=== PATIENT | male | born 1995 | race Hispanic/Latino ===

== ENCOUNTER 2017-04-30 21:32 | Emergency (ER) | payer OTHER ==
[2017-04-30 21:45] VITALS: BMI 39.4
[2017-04-30 21:48] VITALS: BP 126/81; PULSE 73; RESP 16; TEMP 98.6; O2SAT 98
--- NOTE | 2017-04-30 22:11 | ED PDOC ---
Arrival/HPI - General Chief Complaint: Headache Time Seen by Provider: 04/30/17 21:53 Historian: Patient - History of Present Illness Narrative History of Present Illness (Text): 04/30/17 22:11 Ancelmo Knight is a 22 year old male, with no significant past medical history , who presents to the Emergency department complaining of frontal headache. Patient states while driving home today from work he began experiencing frontal headache for which he took Advil with relief. Patient also reports 1 episode of shortness of breath and left-sided rib pain, both which have resolved. Patient notes he has been over-worked and stress at his job. He has not been sleeping well. Patient denies any fever, chills, chest pain, nausea, vomiting, diarrhea, urinary symptoms, back pain, neck pain, dizziness, or any other complaints. Time/Duration: Other (tonight) Symptom Onset: Gradual Symptom Course: Resolved Activities at Onset: Light Context: Learning And Development Coordinator Past Medical History - Provider Review Nursing Documentation Reviewed: Yes - Infectious Disease Hx of Infectious Diseases: None - Psychiatric Hx Psychophysiologic Disorder: No Hx Anxiety: No Hx Bipolar Disorder: No Hx Depression: No Hx Emotional Abuse: No Hx Hallucinations: No Hx Panic Disorder: No Hx Post Traumatic Stress Disorder: No Hx Psychosis: No Hx Physical Abuse: No Hx Schizophrenia: No Hx Sexual Abuse: No Hx Substance Use: No - Anesthesia Hx Anesthesia: No Hx Anesthesia Reactions: No Hx Malignant Hyperthermia: No Family/Social History - Physician Review Nursing Documentation Reviewed: Yes Family/Social History: Unknown Family HX Smoking Status: Former Smoker Hx Alcohol Use: No Hx Substance Use: No Allergies/Home Meds Allergies/Adverse Reactions: Allergies No Known Allergies Allergy (Verified 11/19/14 15:44) Review of Systems - Physician Review All systems were reviewed & negative as marked: Yes - Review of Systems Constitutional: Normal. absent: Fevers Eyes: Normal ENT: Normal Respiratory: SOB. absent: Cough Cardiovascular: Normal. absent: Chest Pain Gastrointestinal: Normal. absent: Abdominal Pain, Diarrhea, Nausea Genitourinary Male: Normal. absent: Dysuria, Frequency, Hematuria, Urinary Output Changes Musculoskeletal: Other (+left rib pain). absent: Back Pain, Neck Pain Skin: Normal. absent: Rash Neurological: Headache. absent: Dizziness Endocrine: Normal Hemo/Lymphatic: Normal Psychiatric: Normal, Other (+stress) Physical Exam Vital Signs Reviewed: Yes Vital Signs Temp Pulse Resp BP Pulse Ox 04/30/17 21:32 98.6 F 73 16 126/81 98 Temperature: Afebrile Blood Pressure: Normal Pulse: Regular Respiratory Rate: Normal Appearance: Positive for: Well-Appearing, Non-Toxic, Comfortable Pain Distress: None Mental Status: Positive for: Alert and Oriented X 3 - Systems Exam Head: Present: Atraumatic, Normocephalic Pupils: Present: PERRL Extroacular Muscles: Present: EOMI Conjunctiva: Present: Normal Mouth: Present: Moist Mucous Membranes Neck: Present: Normal Range of Motion. No: Meningeal Signs, MIDLINE TENDERNESS , Paraspinal Tenderness Respiratory/Chest: Present: Clear to Auscultation, Good Air Exchange. No: Respiratory Distress, Accessory Muscle Use Cardiovascular: Present: Regular Rate and Rhythm, Normal S1, S2. No: Murmurs Abdomen: Present: Normal Bowel Sounds. No: Tenderness, Distention, Peritoneal Signs Back: Present: Normal Inspection. No: CVA Tenderness, Midline Tenderness, Paraspinal Tenderness Upper Extremity: Present: Normal Inspection. No: Cyanosis, Edema Lower Extremity: Present: Normal Inspection. No: Edema Neurological: Present: GCS=15, CN II-XII Intact, Speech Normal Skin: Present: Warm, Dry, Normal Color. No: Rashes Psychiatric: Present: Alert, Oriented x 3, Normal Insight, Normal Concentration Medical Decision Making ED Course and Treatment: 04/30/17 22:11 Impression: 22 year old male presents for frontal headache, 1 episode of shortness of breath , and left-sided rib pain tonight after work, which has since resolved. PERC rule negative. Differential Diagnosis included but are not limited to: anxiety/stress vs. musculoskeletal pain Plan: -- EKG -- Chest X-ray -- Tylenol -- Reassess and disposition Progress Notes: 04/30/17 22:52 EKG reviewed, NSR at [address]-segment elevations or depressions, no T-wave inversions, normal intervals. Chest X-ray reviewed, no acute processes. PERC rule negative. CXR and EKG noted and normal. Patient is a very low risk for PE or cardiac chest pain/sob. 04/30/17 22:55 On re-evaluation, patient feels better and is in no acute distress. I have discussed the results and plan with the patient, who expresses understanding. Patient in agreement with plan to be discharged home. Patient is stable for discharge. Patient was instructed to follow up with physician or return if symptoms worsen or new concerning symptoms arise. - RAD Interpretation Radiology Orders: 04/30/17 22:10 CXR [CHEST TWO VIEWS (PA/LAT)] [RAD] Stat Database Development Project Manager: ED Physician - EKG Interpretation Interpreted by ED Physician: Yes Type: 12 lead EKG - Medication Orders Current Medication Orders: Discontinued Medications Acetaminophen (Tylenol 325mg Tab) 975 mg PO STAT STA Stop: 04/30/17 22:11 Last Admin: 04/30/17 22:14 Dose: 975 mg - Scribe Statement The provider has reviewed the documentation as recorded by the Pete Salazar Provider Scribe Attestation: All medical record entries made by the Scribe were at my direction and personally dictated by me. I have reviewed the chart and agree that the record accurately reflects my personal performance of the history, physical exam, medical decision making, and the department course for this patient. I have also personally directed, reviewed, and agree with the discharge instructions and disposition. Disposition/Present on Arrival - Present on Arrival Any Indicators Present on Arrival: No History of DVT/PE: No History of Uncontrolled Diabetes: No Urinary Catheter: No History of Decub. Ulcer: No History Surgical Site Infection Following: None - Disposition Have Diagnosis and Disposition been Completed?: Yes Diagnosis: Headache, Shortness of breath Disposition: HOME/ ROUTINE Disposition Time: 22:30 Patient Plan: Discharge Condition: IMPROVED Discharge Instructions (ExitCare): Acute Headache (ED), Fatigue (ED) Additional Instructions: Ms Knight, thank you for letting us take care of you today. Your provider was Dr. Reed. You were treated for Headache, Shortness of breathe, Left sided rip pain. The emergency medical care you received today was directed at your acute symptoms. If you were prescribed any medication, please fill it and take as directed. It may take several days for your symptoms to resolve. Return to the Emergency Department if your symptoms worsen, do not improve, or if you have any other problems. Please contact your doctor or call one of the physicians/clinics you have been referred to that are listed on the Patient Visit Information form that is included in your discharge packet. Bring any paperwork you were given at discharge with you along with any medications you are taking to your follow up visit. Our treatment cannot replace ongoing medical care by a primary care provider (PCP) outside of the emergency department. Thank you for allowing the [facility] team to be part of your care today. If you had an X-Ray or CT scan: A Radiologist will review the ED reading if any change in treatment is needed we will contact you. If you had a blood, urine, or wound culture: It will take several days for the results, if any change in treatment is needed we will contact you. If you had an STI test: It will take 48 hours for the results. Please call after 1 week if you have not heard back. Prescriptions: Ibuprofen [Motrin] 600 mg PO Q6 PRN #30 tab PRN Reason: Pain, Moderate (4-7) Referrals: Krissy Wilson MD [Primary Care Provider] - Follow up with primary Forms: [employer] (Pashto)
--- NOTE | 2017-05-01 10:31 | CARD ---
APPROVED REPORT EKG Measurement Heart [id number] <Conclusion> Normal sinus rhythm with sinus arrhythmia Normal ECG
== END 2017-04-30 23:00 | disposition home or self-care (01) ==
LOC: ED 21:32
DX: R51 Headache (principal); R06.02 Shortness of breath

== ENCOUNTER 2017-12-26 12:57 | Emergency (ER) | payer OTHER ==
[2017-12-26 13:18] VITALS: BMI 38.6
[2017-12-26 13:26] VITALS: RESP 18; TEMP 98.5
--- NOTE | 2017-12-26 13:45 | ED PDOC ---
Arrival/HPI - General Chief Complaint: Weakness/Neurological Deficit Time Seen by Provider: 12/26/17 13:06 Historian: Patient, Family (Brother) - History of Present Illness Narrative History of Present Illness (Text): 12/26/17 13:35 A 22 year old male, with no significant past medical history, presents to the emergency department with a complaint of right sided facial weakness. The patient notes that he has been experiencing a metal taste in his mouth for the last week. He states that last night he lost sensation to the right side of his face. The patient also notes that he has been experiencing intermittent headaches in the evenings fro the last 6 months. 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 The patient denies fevers, chills, dizziness, sore throat, cough, chest pain, shortness of breath, dyspnea on exertion, abdominal pain, nausea, vomiting, diarrhea, neck/back pain, urinary/bowel changes or any other complaint. PMD: Dr. Wilson Time/Duration: Other (Last Night) Symptom Onset: Sudden Symptom Course: Unchanged Activities at Onset: Rest, Light Context: Home Past Medical History - Provider Review Nursing Documentation Reviewed: Yes - Infectious Disease Hx of Infectious Diseases: None - Psychiatric Hx Psychophysiologic Disorder: No Hx Anxiety: No Hx Bipolar Disorder: No Hx Depression: No Hx Emotional Abuse: No Hx Hallucinations: No Hx Panic Disorder: No Hx Post Traumatic Stress Disorder: No Hx Psychosis: No Hx Physical Abuse: No Hx Schizophrenia: No Hx Sexual Abuse: No Hx Substance Use: No - Anesthesia Hx Anesthesia: No Hx Anesthesia Reactions: No Hx Malignant Hyperthermia: No Family/Social History - Physician Review Nursing Documentation Reviewed: Yes Family/Social History: No Known Family HX Smoking Status: Former Smoker Hx Alcohol Use: No Hx Substance Use: No Allergies/Home Meds Allergies/Adverse Reactions: Allergies No Known Allergies Allergy (Verified 12/26/17 13:14) Review of Systems - Physician Review All systems were reviewed & negative as marked: Yes - Review of Systems Constitutional: absent: Fevers ENT: absent: Sore Throat Respiratory: absent: SOB, Cough Cardiovascular: absent: Chest Pain, [place] Gastrointestinal: absent: Abdominal Pain, Stool Changes, Diarrhea, Nausea, Vomiting Genitourinary Male: absent: Urinary Output Changes Musculoskeletal: absent: Back Pain, Neck Pain Neurological: Headache, Other (Right sided facial weakness). absent: Dizziness Physical Exam Vital Signs Reviewed: Yes Vital Signs Temp Pulse Resp BP Pulse Ox 12/26/17 13:25 98.5 F 77 18 143/79 100 Temperature: Afebrile Blood Pressure: Normal Pulse: Regular Respiratory Rate: Normal Appearance: Positive for: Well-Appearing, Non-Toxic, Comfortable Pain Distress: None Mental Status: Positive for: Alert and Oriented X 3 Finger Stick Blood Glucose: 94 - Systems Exam Head: Present: Atraumatic, Normocephalic Pupils: Present: PERRL Extroacular Muscles: Present: EOMI Conjunctiva: Present: Normal Mouth: Present: Moist Mucous Membranes Neck: Present: Normal Range of Motion. No: Meningeal Signs, MIDLINE TENDERNESS Respiratory/Chest: Present: Clear to Auscultation, Good Air Exchange. No: Respiratory Distress, Accessory Muscle Use Cardiovascular: Present: Regular Rate and Rhythm, Normal S1, S2. No: Murmurs Abdomen: No: Tenderness, Distention, Peritoneal Signs Back: Present: Normal Inspection Upper Extremity: Present: Normal Inspection. No: Cyanosis, Edema Lower Extremity: Present: Normal Inspection. No: Edema Neurological: Present: GCS=15, CN II-XII Intact (Except CN 7), Speech Normal, Other (Paralysis of the entire right face, able to close R eye without issue however. Paralysis includes R forehead) Skin: Present: Warm, Dry, Normal Color. No: Rashes Psychiatric: Present: Alert, Oriented x 3, Normal Insight, Normal Concentration Medical Decision Making ED Course and Treatment: 12/26/17 13:47 Impression: A 22 year old male presents to the emergency department with a complaint of right sided facial weakness. 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 Will CT head to r/ out tumor given hx of GIBSON and has not visited neurology. no hx of tick bites or abnormal ra sh. Plan: -- Head CT -- Reassess and disposition Prior Visits: Notes and results from previous visits were reviewed. Progress Notes: PROCEDURE: CT HEAD WITHOUT CONTRAST. Dictator : Ashley Morales MD Report Date : 12/26/2017 14:38:34 IMPRESSION: No acute intracranial pathology identified. 12/26/17 14:48 Ct head unremarkable bells palsy neuro exam repeat w/ bells palsy. No other changes. clear for d/c home. - Lab Interpretations Lab Results: Lab Results 12/26/17 13:11: POC Glucose (mg/dL) 94 - RAD Interpretation Radiology Orders: 12/26/17 13:34 HEAD W/O CONTRAST [CT] Stat - Scribe Statement The provider has reviewed the documentation as recorded by the Scribe Awa Alvarez Provider Scribe Attestation: All medical record entries made by the Scribe were at my direction and personally dictated by me. I have reviewed the chart and agree that the record accurately reflects my personal performance of the history, physical exam, medical decision making, and the department course for this patient. I have also personally directed, reviewed, and agree with the discharge instructions and disposition. Disposition/Present on Arrival - Present on Arrival Any Indicators Present on Arrival: No History of DVT/PE: No History of Uncontrolled Diabetes: No Urinary Catheter: No History of Decub. Ulcer: No History Surgical Site Infection Following: None - Disposition Have Diagnosis and Disposition been Completed?: Yes Diagnosis: Mcnamara's palsy Disposition: HOME/ ROUTINE Disposition Time: 14:49 Condition: GOOD Discharge Instructions (ExitCare): Mcnamara's Palsy Additional Instructions: TAKE OVER THE COUNTER EYEDROPS FOR HYDRATION OVERNIGHT FOR YOUR EYE. TAPE YOUR EYE SHUT GENTLY WITH A GENTLE TAPE IF YOU WAKE UP WITH DRY EYES. TACOS KHALIL, thank you for letting us take care of you today. Your provider was Suresh Gamez and you were treated for MUSCLE WEEKNESS ON FACE. The emergency medical care you received today was directed at your acute symptoms. If you were prescribed any medication, please fill it and take as directed. It may take several days for your symptoms to resolve. Return to the Emergency Department if your symptoms worsen, do not improve, or if you have any other problems. Please contact your doctor or call one of the physicians/clinics you have been referred to that are listed on the Patient Visit Information form that is included in your discharge packet. Bring any paperwork you were given at discharge with you along with any medications you are taking to your follow up visit. Our treatment cannot replace ongoing medical care by a primary care provider outside of the emergency department. Thank you for allowing the [facility] team to be part of your care today. If you had an X-Ray or CT scan: A Radiologist will review the ED reading if any change in treatment is needed we will contact you. If you had a blood, urine, or wound culture: It will take several days for the results, if any change in treatment is needed we will contact you. If you had an STI test: It will take 48 hours for the results. Please call after 1 week if you have not heard back. Prescriptions: predniSONE [predniSONE Tab] 60 mg PO QAM 7 Days #21 tab Valacyclovir HCl [Valtrex] 1 gm PO TID 7 Days #21 tablet Referrals: Krissy Wilson MD [Primary Care Provider] - Follow up with primary Darrell Sherwood MD [Staff Provider] - Follow up with primary Forms: [employer] (Armenian), WORK NOTE
--- NOTE | 2017-12-26 14:43 | CT ---
Date of service: 12/26/2017 PROCEDURE: CT HEAD WITHOUT CONTRAST. HISTORY: hx of GIBSON COMPARISON: None available. TECHNIQUE: Axial computed tomography images were obtained through the head/brain without intravenous contrast. Radiation dose: Total exam DLP = 1025.19 mGy-cm. This CT exam was performed using one or more of the following dose reduction techniques: Automated exposure control, adjustment of the mA and/or kV according to patient size, and/or use of iterative reconstruction technique. FINDINGS: HEMORRHAGE: No intracranial hemorrhage. BRAIN: No mass effect or edema. No atrophy or chronic microvascular ischemic changes. VENTRICLES: No hydrocephalus. CALVARIUM: Unremarkable. PARANASAL SINUSES: Unremarkable as visualized. No significant inflammatory changes. MASTOID AIR CELLS: Unremarkable as visualized. No inflammatory changes. OTHER FINDINGS: None. IMPRESSION: No acute intracranial pathology identified.
[2017-12-26 15:34] VITALS: BP 106/61; PULSE 65; O2SAT 99
== END 2017-12-26 15:49 | disposition home or self-care (01) ==
LOC: ED 12:57
DX: G51.0 Bell's palsy (principal)

== ENCOUNTER 2018-03-22 16:18 | Emergency (ER) | payer MEDICAID, OTHER ==
[2018-03-22 16:18] VITALS: BMI 38.6
[2018-03-22] MEDS ORDERED: Sodium Chloride 0.9% 1,000 ML IV STA (16:48)
[2018-03-22 17:15] LABS: URINE APPEARANCE SLIGHT-CLOUDY (CLEAR); URINE BILIRUBIN SMALL (NEGATIVE); URINE BLOOD LARGE (NEGATIVE); URINE COLOR DARK YELLOW (YELLOW); URINE GLUCOSE (UA) NEGATIVE (NEGATIVE); URINE LEUKOCYTE ESTERASE NEGATIVE Leu/uL (NEGATIVE); URINE PROTEIN 100 mg/dL (<30 mg/dL)
[2018-03-22 17:22] LABS: URINE RBC TNTC /hpf (0-2); URINE WBC NEGATIVE /hpf (0-6)
[2018-03-22 17:49] LABS: BASO # 0.02 K/mm3 (0.0-2.0); BASO % 0.3 % (0.0-3.0); EOS # 0.2 (0.0-0.7); EOS % 2.5 % (1.5-5.0); GRAN # 4.31 (1.4-6.5); GRAN % 55.6 % (50.0-68.0); HEMOGLOBIN 14.6 g/dL (14.0-18.0); LYMPH # 2.5 (1.2-3.4); LYMPH % 32.7 % (22.0-35.0); MEAN CELL VOLUME 78.7 fl (80.0-105.0); MEAN CORPUSCULAR HEMOGLOBIN 26.4 pg (25.0-35.0); MEAN CORPUSCULAR HGB CONC 33.6 g/dl (31.0-37.0); MEAN PLATELET VOLUME 9.7 fl (7.0-11.0); MONO # 0.7 (0.1-0.6); MONO % 8.9 % (1.0-6.0); RBC 5.53 10^6/uL (3.5-6.1); RED CELL DISTRIBUTION WIDTH 13.6 % (11.5-14.5); WHITE BLOOD COUNT 7.7 10^3/uL (4.5-11.0)
[2018-03-22 17:50] LABS: ALB/GLOB RATIO 1.2 (1.1-1.8)
[2018-03-22 17:59] LABS: ALBUMIN 4.5 g/dL (3.0-4.8); ALT/SGPT 45 U/L (7-56); AST/SGOT 47 U/L (17-59); BLOOD UREA NITROGEN 9 mg/dL (7-21); CALCIUM 9.5 mg/dL (8.4-10.5); GFR NON-AFRICAN AMERICAN > 60
--- NOTE | 2018-03-22 18:15 | ED PDOC ---
Arrival/HPI - General Chief Complaint: Male Genitourinary Time Seen by Provider: 03/22/18 16:27 Historian: Patient - History of Present Illness Narrative History of Present Illness (Text): 03/22/18 18:12 23 year old male, with no significant past medical history, who presents to the ED complaining of left lower back pain and hematuria. Patient denies any chest pain, neck pain, abdominal pain, n/v/d, dysuria, sob, headache, dizziness, or any other complaints. Time/Duration: Other (today) Symptom Onset: Gradual Symptom Course: Unchanged Activities at Onset: Light Context: Home Past Medical History - Provider Review Nursing Documentation Reviewed: Yes - Infectious Disease Hx of Infectious Diseases: None - Neurological Other/Comment: [place] Palsy - Psychiatric Hx Psychophysiologic Disorder: No Hx Anxiety: No Hx Bipolar Disorder: No Hx Depression: No Hx Emotional Abuse: No Hx Hallucinations: No Hx Panic Disorder: No Hx Post Traumatic Stress Disorder: No Hx Psychosis: No Hx Physical Abuse: No Hx Schizophrenia: No Hx Sexual Abuse: No Hx Substance Use: No - Anesthesia Hx Anesthesia: No Hx Anesthesia Reactions: No Hx Malignant Hyperthermia: No Family/Social History - Physician Review Nursing Documentation Reviewed: Yes Family/Social History: Unknown Family HX Smoking Status: Former Smoker Hx Alcohol Use: No Hx Substance Use: No Allergies/Home Meds Allergies/Adverse Reactions: Allergies No Known Allergies Allergy (Verified 12/26/17 13:14) Review of Systems - Physician Review All systems were reviewed & negative as marked: Yes - Review of Systems Constitutional: Normal Eyes: Normal ENT: Normal Respiratory: Normal. absent: SOB, Cough Cardiovascular: Normal. absent: Chest Pain Gastrointestinal: Normal. absent: Abdominal Pain, Constipation, Diarrhea, Nausea, Vomiting Genitourinary Male: Hematuria. absent: Dysuria, Frequency Musculoskeletal: Other (left lower back pain). absent: Back Pain, Neck Pain Skin: Normal. absent: Rash Neurological: Normal. absent: Headache, Dizziness Endocrine: Normal Hemo/Lymphatic: Normal Psychiatric: Normal Physical Exam - Physical Exam Narrative Physical Exam (Text): 03/22/18 18:17 Constitutional: No acute distress. Head: Normocephalic. Atraumatic. Eyes: PERRL. ENT: Moist mucous membranes. Neck: Supple. Cardiovascular: Regular rate. Chest: No tenderness. Respiratory: Clear to auscultation bilaterally. GI: Soft. Nontender. Nondistended. Back: No CVA tenderness. Musculoskeletal: No tenderness or swelling of extremities. Skin: No rash. Neurologic: Alert, no focal deficit. Vital Signs Temp Pulse Resp BP Pulse Ox 03/22/18 17:06 98.3 F 78 18 140/86 98 Medical Decision Making ED Course and Treatment: 03/22/18 18:17 Impression: 23 year old male presents to the ED complaining of left lower back pain and hematuria. Plan: -- CT Abd/pelvis -- Toradol -- Sodium Chloride -- Urine Culture -- reassess and disposition Progress Notes: Pending CT. Signed out to ED night team. - Lab Interpretations Lab Results: 03/22/18 17:33 03/22/18 17:33 Lab Results 03/22/18 17:33: Sodium 137, Potassium 4.1, Chloride 104, Carbon Dioxide 26, Anion Gap 12, BUN 9, Creatinine 0.6 L, Est GFR ( Amer) > 60, Est GFR (Non-Af Amer) > 60, Random Glucose 103, Calcium 9.5, Total Bilirubin 0.4, AST 47, ALT 45, Alkaline Phosphatase 61, Total Protein 8.2, Albumin 4.5, Globulin 3.7, Albumin/Globulin Ratio 1.2 03/22/18 17:33: WBC 7.7, RBC 5.53, Hgb 14.6, Hct 43.5, MCV 78.7 L, MCH 26.4, MCHC 33.6, RDW 13.6, Plt Count 359, MPV 9.7, Gran % 55.6, Lymph % (Auto) 32.7, [place] % (Auto) 8.9 H, Eos % (Auto) 2.5, Baso % (Auto) 0.3, Gran # 4.31, Lymph # (Auto) 2.5, [place] # (Auto) 0.7 H, Eos # (Auto) 0.2, Baso # (Auto) 0.02 03/22/18 16:59: Urine Color Dark yellow, Urine Appearance Slight-cloudy, Urine pH 6.0, Ur Specific [place] >= 1.030, Urine Protein 100 H, Urine Glucose (UA) Negative, Urine Ketones Trace H, Urine Blood Large H, Urine Nitrate Negative, Urine Bilirubin Small H, Urine Urobilinogen 1.0 H, Ur Leukocyte Esterase Negative, Urine RBC Tntc H, Urine WBC Negative, Ur Epithelial Cells None - RAD Interpretation Radiology Orders: 03/22/18 16:49 ABD & PELVIS W/O PO OR IV CONT [CT] Stat - Medication Orders Current Medication Orders: Discontinued Medications Sodium Chloride (Sodium Chloride 0.9%) 1,000 mls @ 999 mls/hr IV .Q1H1M STA Stop: 03/22/18 17:48 Last Admin: 03/22/18 17:22 Dose: 999 mls/hr eMAR Start Stop Document 03/22/18 17:22 EQ (Rec: 03/22/18 17:22 EQ [facility] [id number]) Intravenous Solution Start Date 03/22/18 Start Time 17:22 Ketorolac Tromethamine (Toradol) 30 mg IVP STAT STA Stop: 03/22/18 16:50 Last Admin: 03/22/18 17:20 Dose: 30 mg MAR Pain Assessment Document 03/22/18 17:20 EQ (Rec: 03/22/18 17:21 EQ [facility] [id number]) Pain Reassessment Is this a pain reassessment? No Pain Scale Used Protocol: PSCALES Pain Scale Used Numeric Location Left, Right or Bilateral Left Pain Location Body Site Back Description Description Intermittent Intensity of Pain at present 5 Acceptable Level of Pain 0 Pain Behavior Facial Grimacing Aggravating Factors Changing Position Alleviating Factors/Management Inactivity Techniques IVP Administration Document 03/22/18 17:20 EQ (Rec: 03/22/18 17:21 EQ [facility] [id number]) Charges for Administration # of IVP Administrations 1 - Scribe Statement The provider has reviewed the documentation as recorded by the Scribe Azul Mason All medical record entries made by the Scribe were at my direction and personally dictated by me. I have reviewed the chart and agree that the record accurately reflects my personal performance of the history, physical exam, medical decision making, and the department course for this patient. I have also personally directed, reviewed, and agree with the discharge instructions and disposition. Disposition/Present on Arrival - Present on Arrival Any Indicators Present on Arrival: No History of DVT/PE: No History of Uncontrolled Diabetes: No Urinary Catheter: No History of Decub. Ulcer: No History Surgical Site Infection Following: None - Disposition Have Diagnosis and Disposition been Completed?: No Diagnosis: Flank pain Disposition: HOME/ ROUTINE Disposition Time: 19:00 Condition: STABLE Discharge Instructions (ExitCare): Acute Abdomen (Belly Pain), Adult (DC) Print Language: MOHAWK Prescriptions: RX: Ibuprofen [Motrin Tab] 800 mg PO Q6H PRN #24 tab PRN Reason: Pain, Moderate (4-7) Referrals: Jimmy Tellez MD [Primary Care Provider] - Follow up with primary Forms: [employer] ([place]er)
[2018-03-22 19:09] VITALS: O2SAT 99
--- NOTE | 2018-03-22 19:56 | ED PDOC ---
Physical Exam Vital Signs Temp Pulse Resp BP Pulse Ox 03/22/18 19:07 97.8 F 72 20 106/54 L 99 03/22/18 17:06 98.3 F 78 18 140/86 98 Medical Decision Making ED Course and Treatment: 03/22/18 19:[address] Vieira with patient pending CT a/p. 03/22/18 20:53 CT a/p shows no acute intraabdominal pathology. Patient reassessed and in no acute distress. Importance of continuing conservative management at home as well as surveillance for any worrisome symptoms stressed to patient. He demonstrates understanding and will follow up. He is stable for discharge. - Lab Interpretations Lab Results: 03/22/18 17:33 03/22/18 17:33 Lab Results 03/22/18 17:33: Sodium 137, Potassium 4.1, Chloride 104, Carbon Dioxide 26, Anion Gap 12, BUN 9, Creatinine 0.6 L, Est GFR ( Amer) > 60, Est GFR (Non-Af Amer) > 60, Random Glucose 103, Calcium 9.5, Total Bilirubin 0.4, AST 47, ALT 45, Alkaline Phosphatase 61, Total Protein 8.2, Albumin 4.5, Globulin 3.7, Albumin/Globulin Ratio 1.2 03/22/18 17:33: WBC 7.7, RBC 5.53, Hgb 14.6, Hct 43.5, MCV 78.7 L, MCH 26.4, MCHC 33.6, RDW 13.6, Plt Count 359, MPV 9.7, Gran % 55.6, Lymph % (Auto) 32.7, Graham % (Auto) 8.9 H, Eos % (Auto) 2.5, Baso % (Auto) 0.3, Gran # 4.31, Lymph # (Auto) 2.5, Graham # (Auto) 0.7 H, Eos # (Auto) 0.2, Baso # (Auto) 0.02 03/22/18 16:59: Urine Color Dark yellow, Urine Appearance Slight-cloudy, Urine pH 6.0, Ur Specific [place] >= 1.030, Urine Protein 100 H, Urine Glucose (UA) Negative, Urine Ketones Trace H, Urine Blood Large H, Urine Nitrate Negative, Urine Bilirubin Small H, Urine Urobilinogen 1.0 H, Ur Leukocyte Esterase Negative, Urine RBC Tntc H, Urine WBC Negative, Ur Epithelial Cells None I have reviewed the lab results: Yes - RAD Interpretation Narrative RAD Interpretations (Text): 03/22/18 20:35 CT abd/pelvis reviewed, shows: IMPRESSION: No acute intra-abdominal or pelvic abnormality. No urinary calculi are seen. Radiology Orders: 03/22/18 16:49 ABD & PELVIS W/O PO OR IV CONT [CT] Stat - Medication Orders Current Medication Orders: Discontinued Medications Sodium Chloride (Sodium Chloride 0.9%) 1,000 mls @ 999 mls/hr IV .Q1H1M STA Stop: 03/22/18 17:48 Last Admin: 03/22/18 17:22 Dose: 999 mls/hr eMAR Start Stop Document 03/22/18 17:22 EQ (Rec: 03/22/18 17:22 EQ [facility] [id number]) Intravenous Solution Start Date 03/22/18 Start Time 17:22 Ketorolac Tromethamine (Toradol) 30 mg IVP STAT STA Stop: 03/22/18 16:50 Last Admin: 03/22/18 17:20 Dose: 30 mg MAR Pain Assessment Document 03/22/18 17:20 EQ (Rec: 03/22/18 17:21 EQ [facility] [id number]) Pain Reassessment Is this a pain reassessment? No Pain Scale Used Protocol: PSCALES Pain Scale Used Numeric Location Left, Right or Bilateral Left Pain Location Body Site Back Description Description Intermittent Intensity of Pain at present 5 Acceptable Level of Pain 0 Pain Behavior Facial Grimacing Aggravating Factors Changing Position Alleviating Factors/Management Inactivity Techniques IVP Administration Document 03/22/18 17:20 EQ (Rec: 03/22/18 17:21 EQ [facility] [id number]) Charges for Administration # of IVP Administrations 1 Disposition/Present on Arrival - Present on Arrival Any Indicators Present on Arrival: No History of DVT/PE: No History of Uncontrolled Diabetes: No Urinary Catheter: No History of Decub. Ulcer: No History Surgical Site Infection Following: None - Disposition Have Diagnosis and Disposition been Completed?: Yes Diagnosis: Flank pain Disposition: HOME/ ROUTINE Disposition Time: 20:53 Patient Plan: Discharge Condition: STABLE Discharge Instructions (ExitCare): Acute Abdomen (Belly Pain), Adult (DC) Print Language: ROMANSH Prescriptions: RX: Ibuprofen [Motrin Tab] 800 mg PO Q6H PRN #24 tab PRN Reason: Pain, Moderate (4-7) Referrals: Jimmy Tellez MD [Primary Care Provider] - Follow up with primary Forms: [employer] (Kiswahili)
[2018-03-22 21:39] VITALS: BP 121/75; PULSE 69; RESP 18; TEMP 98
--- NOTE | 2018-03-23 09:12 | CT ---
Date of service: 03/22/2018 PROCEDURE: CT Abdomen and Pelvis without intravenous contrast HISTORY: hematuria, back pain COMPARISON: None. TECHNIQUE: Technique. Contrast dose: Radiation dose: Total exam DLP = 1000.34 mGy-cm. This CT exam was performed using one or more of the following dose reduction techniques: Automated exposure control, adjustment of the mA and/or kV according to patient size, and/or use of iterative reconstruction technique. FINDINGS: LOWER THORAX: Unremarkable. LIVER: Unremarkable. No gross lesion or ductal dilatation. GALLBLADDER AND BILE DUCTS: Unremarkable. PANCREAS: Unremarkable. No gross lesion or ductal dilatation. SPLEEN: Unremarkable. ADRENALS: Unremarkable. No mass. KIDNEYS AND URETERS: Unremarkable. No hydronephrosis. No solid mass. VASCULATURE: Unremarkable. No aortic aneurysm. No aortic atherosclerotic calcification or mural plaque present. BOWEL: Unremarkable. No obstruction. No gross mural thickening. APPENDIX: Unremarkable. Normal appendix. PERITONEUM: Unremarkable. No free fluid. No free air. LYMPH NODES: Unremarkable. No enlarged lymph nodes. BLADDER: Unremarkable. REPRODUCTIVE: Unremarkable. BONES: No acute fracture. OTHER FINDINGS: None. IMPRESSION: Unremarkable non contrast enhanced CT of the abdomen and pelvis.
== END 2018-03-22 21:49 | disposition home or self-care (01) ==
LOC: ED 16:18
DX: R10.9 Unspecified abdominal pain (principal); Z87.891 Personal history of nicotine dependence
CPT/HCPCS: 74176; 80053; 81001; 85025; 87086; 96374; 99285; J1885; J7030